=== PATIENT | female | born 1990 | race Caucasian/White ===

== ENCOUNTER 2022-10-03 11:31 | Outpatient (OUT) | payer BC, SELFPAY ==
[2022-09-13 08:54] LABS: Hemoglobin 12.3 g/dL (12.0-16.0)
--- NOTE | 2022-09-13 10:00 | RT_ITS ---
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 Findings were considered accurate and reproducible. Both pre- and post-bronchodilator values utilized for spirometry. No prior studies available for comparison. Spirometry (based on pre-bronchodilator values): -FEV1/FVC: Normal @ 89% -FEV1: Normal @ 89% -FVC: Normal @ 85% -There is no significant bronchodilator response. Lung volumes by plethysmography (based on pre-bronchodilator values): -RV: Normal @ 93% -TLC: Normal @ 89% Diffusion capacity: -DLCO: Normal @ 123% when corrected for Hb 12.3g/dL Flow-volume loop: -Normal variant 'knee shape' Impressions: -Normal PFT. If asthma remains in the differential, may consider methacholine challenge testing. Clinical correlation required. Electronically Signed On 09-13-2022 18:02:13 EDT by Aditya Hill
[2022-09-13 10:10] VITALS: PULSE 104; O2SAT 96
[2022-09-13] MEDS: ALBUTEROL SULFATE 2.5 MG/3 ML VIAL NEB IH (10:10)
== END 2022-10-03 11:32 | disposition home or self-care (01) ==
LOC: CARD 11:31
PROVIDERS: PCP Family Medicine; Visit Provider Nurse Practitioner
DX: R05.9 Cough, unspecified (principal); R06.02 Shortness of breath; J45.909 Unspecified asthma, uncomplicated
CPT/HCPCS: 36415; 85018; 94060; 94726; 94729

== ENCOUNTER 2024-05-05 20:19 | Outpatient (REF) | payer OTHER, SELFPAY | END 2024-05-05 20:20 | disposition home or self-care (01) | LOC: LAB 20:19 | PROVIDERS: PCP Family Medicine; Visit Provider Physician Assistant | DX: Z01.419 Encounter for gynecological examination (general) (routine) without abnormal findings (principal) | CPT/HCPCS: 87624; 88175 ==

== ENCOUNTER 2024-05-09 08:39 | Outpatient (OUT) | payer OTHER, SELFPAY ==
--- OUTSIDE RECORDS SUMMARY | 2024-05-09 08:41 | XMS_ITS | CCD ---
Author Organization [facility] Care Team Providers Care Sheep Shearer Name Role Phone MD Arnie Garcia Attending Provider [phone] MD Jemima De La Fuente Primary Care Provider Arnie Garcia Unavailable JASMYN ., DR JEMIMA Foote Primary Care Unavailable DE LA FUENTE ., DR JEMIMA Foote Consulting Unavailable DE LA FUENTE ., DR JEMIMA Foote Attending Unavailable DE LA FUENTE ., DR JEMIMA Foote Admitting Unavailable [place], DR HARLEEN Fields Consulting Unavailable DE LA FUENTE ., DR JEMIMA Foote Primary Care Unavailable DE LA FUENTE ., DR JEMIMA Foote Consulting Unavailable DE LA FUENTE ., DR JEMIMA Foote Attending Unavailable JASMYN ., DR JEMIMA Foote Admitting Unavailable MD Jemima De La Fuente Primary Care Provider [phone] MD Arnie Garcia Attending Provider Dario Freeman. Primary Care Physician Christina Carmichael Unavailable ELISA WINTER Attending Unavailable ELISA WINTER Referring Unavailable ELISA WINTER Referring Unavailable MD Dario Freeman Attending Unavailable MD Dario Freeman Attending Unavailable MD Dario Freeman. Attending Unavailable MD Dario Freeman Attending Unavailable BROOKS ABREU Attending UnavailReyes Valdes Attending Unavailab Reyes Morgan Admitting Unavailab Jemima eLon Primary Care Unavailable MYRNA JAIMES Attending Unavailable KENNETH MELÉNDEZ Attending Unavailable Dario Freeman MD Primary Care Provider Allergies Allergy Classification Reported Allergen(s) Allergy Type Date of Onset Reaction(s) Facility (3 sources) Acetaminophen; Translations: [acetaminophen] Drug Allergy 2 [facility] (3 sources) HYDROcodone; Translations: [hydrocodone] Drug Allergy 2 Vomiting [facility] (9 sources) Acetaminophen / HYDROcodone; Translations: [Vicodin] Drug Allergy 7 Vomiting (disorder) [facility] (1 source) No Known Medication Allergies; Translations: [No Known Medication Allergies] Propensity to adverse reactions (disorder) [facility] Rep[facility] (3 sources) Acetaminophen / HYDROcodone Drug Allergy 4 GI intolerance [facility] (3 sources) Latex Allergy to substance 4 Rash [facility] (3 sources) Wound Dressing Adhesive Drug Allergy 4 Rash [facility] Medications Current Medications Medication Drug Class(es) Dates Sig (Normalized) Sig (Original) acetaminophen 250 mg / aspirin 250 mg / caffeine 65 mg oral tablet (2 sources) Platelet Aggregation Inhibitor, Nonsteroidal Anti-inflammatory Drug, Central Nervous System Stimulant, Methylxanthine Start: 12-08-2021 take 1 tablet by mouth every six hours Aspirin-Acetamin ophen-Caffeine (Excedrin Migraine) 250-250-65 mg Tablet Active 1 TAB PO Q6H December 08, 2021 12:00am acetaminophen 300 mg / butalbital 50 mg / caffeine 40 mg oral capsule (4 sources) Barbiturate, Central Nervous System Stimulant, Methylxanthine Start: 07-04-2022 take 1 capsule by mouth every four hours Fioricet oral capsule 1 cap(s), Oral, q4hr Headache, 30 cap(s), Refill(s) 0, [facility], 152, cm, 07/03/22 15:49:00 EDT, Height/Length Dosing, 108.5, kg, 07/03/22 15:49:00 EDT, Weight Dosing Start Date: 07/04/22 Status: Ordered End: 05-05-2024 mevjuohxrp-nkgllpyortawm-tpp feine (Esgic) 50-325-40 MG capsule every 4 (four) hours 05/05/2024 Discontinued [id number] 200 actuat albuterol 0.09 mg/actuat metered dose inhaler (11 sources) beta2-Adrenergic Agonist Start: 12-08-2021 take 1 puff(s) by inhalation every four hours Albuterol Sulfate Active 2 PUFF INHALATION Q4H December 08, 2021 12:00am albuterol HFA 90 mcg/act inhaler every 4 (four) hours Active take 2 puff(s) by in halation every four hours as needed Albuterol Sulfate HFA 108 (90 Base) MCG/ACT INHALE 2 PUFFS EVERY 4 HOURS NEEDED Inhalation for 17 Days Active take 2 puff(s) by in halation every four hours as needed Albuterol Sulfate HFA 108 (90 Base) MCG/ACT INHALE 2 PUFFS EVERY 4 HOURS NEEDED Inhalation for 17 Days Active Albuterol (Eqv-ProAir HFA) 90 mcg/inh inhalation aerosol (1 source) Start: 07-02-2022 take 2 puff(s) by inhalation every four hours as needed Albuterol (Eqv-ProAir HFA) 90 mcg/inh inhalation aerosol 2 puff(s), Inhalation, q4hr, Refill(s) 0, as needed Start Date: 07/02/22 Status: Ordered amitriptyline hydrochloride 10 mg oral tablet (8 sources) Tricyclic Antidepressant Start: 12-08-2021 take 10 mg by mouth once daily at bedtime Amitriptyline Active 10 MG PO Daily at bedtime December 08, 2021 12:00am azithromycin 250 mg oral tablet (1 source) Macrolide Antimicrobial Start: 12-27-2022 Azithromycin 250 MG 2 tablet on the first day, then 1 tablet daily for 4 days Orally Once a day for 5 day(s) Dec, Active cephalexin 500 mg oral capsule (2 sources) Cephalosporin Antibacterial Start: 06-15-2022 take 500 mg by mouth three times daily Cephalexin Active 500 MG PO Three times daily June 15, 2022 12:00am Start: 12-08-2021 take 500 mg by mouth three times daily Cephalexin Active 500 MG PO Three times daily December 08, 2021 12:00am dextromethorphan hydrobromide 1.5 mg/ml / pyrilamine maleate 1.5 mg/ml oral solution (1 source) Uncompetitive W-anbpcb-A-aspartate Receptor Antagonist, Sigma-1 Agonist Start: 12-27-2022 take 10 mL by mouth every eight hours [place] DM 7.5-7.5 MG/5ML 10 mL Orally every 8 hours for 5 days Dec, Active 120 actuat fluticasone propionate 0.22 mg/actuat metered dose inhaler (1 source) Corticosteroid Start: 09-11-2022 take 1 puff(s) by inhalation twice daily Flovent HFA 220 Aerosol = 1 puff(s), Inhalation, BID, # 12 gram, Refills(s) 0, Pharmacy: [facility], 152.4, cm, 09/11/22 13:38:00 EDT, Height/Length Dosing, 116.4, kg, 09/11/22 13:38:00 EDT, Weight Dosing Start Date: 09/11/22 Status: Ordered magnesium oxide 400 mg oral tablet (2 sources) Start: 05-05-2024 End: 06-04-2024 take 1 tablet by mouth once daily magnesium oxide (Mag-Ox) 400 MG tablet Indications: Other migraine without status migrainosus, not intractable (CMS/HCC) Take 1 tablet (400 mg) by mouth Daily 30 tablet 05/05/2024 06/04/2024 Active melatonin 10 mg oral tablet (1 source) Start: 07-03-2022 melatonin 10 mg oral tablet, chewable See Instructions, Refills(s) 0 Start Date: 07/03/22 Status: Ordered methylPREDNISolone 4 mg oral tablet (1 source) Corticosteroid Start: 12-27-2022 methylPREDNISolone 4 MG as directed Orally for daily dose take half with breakfast, half with dinner for 6 days Dec, Active montelukast 10 mg oral tablet (12 sources) Leukotriene Receptor Antagonist Start: 2023 montelukast (Singulair) 10 MG tablet Take 10 mg by mouth 2023 Active Start: 12-08-2021 take 1 tablet by jeniffer th once daily montelukast 10 mg Tab 10 mg = 1 tab(s), Oral, Daily, Refills(s) 0 Start Date: 07/02/22 Status: Ordered omeprazole 10 mg delayed release oral capsule (8 sources) Proton Pump Inhibitor Start: 12-08-2021 take 10 mg by mouth once daily Omeprazole Active 10 MG PO Daily December 08, 2021 12:00am oxyCODONE hydrochloride 5 mg oral tablet (2 sources) Opioid Agonist Start: 06-15-2022 take 5-10 mg by mouth every six hours Oxycodone Active 5 - 10 MG PO Q6H 40 8 June 15, 2022 Start: 12-08-2021 take 5-10 mg by mout h every six hours Oxycodone Active 5 - 10 MG PO Q6H 40 8 December 08, 2021 SUMAtriptan 50 mg oral tablet (8 sources) Serotonin-1b and Serotonin-1d Receptor Agonist Start: 12-08-2021 take 50 mg by mouth every four hours Sumatriptan Succinate Active 50 MG PO Every 4 hours December 08, 2021 12:00am take 1 tablet by jeniffer th every two hours as needed for headache, then take 2 tablets by mouth every twenty-four hours as needed for headache, then take 5 tablets by mouth every week as needed for headache SUMAtriptan Succinate 50 MG TAKE ONE TABLET BY MOUTH NEEDED FOR HEADACHE -MAY REPEAT IN 2 HOURS AND NO MORE THAN 2 TABS IN 24 HOURS OR 5 TABS WEEKLY Oral for 9 Days Not-Taking ubrogepant 100 mg oral tablet (1 source) Start: 07-04-2022 take 1 tablet by mouth once Ubrelvy 100 mg oral tablet 100 mg = 1 tab(s), Oral, Once, # 30 tab(s), Refills(s) 0, Pharmacy: [facility], 152, cm, 07/03/22 15:49:00 EDT, Height/Length Dosing, 108.5, kg, 07/03/22 15:49:00 EDT, Weight Dosing Start Date: 07/04/22 Status: Ordered Completed/Discontinued Medications Medication Drug Class(es) Dates Sig (Normalized) Sig (Original) cyclobenzaprine hydrochloride 10 mg oral tablet (9 sources) Muscle Relaxant Start: 12-08-2021 take 1 tablet by mouth at bedtime as needed cyclobenzaprine 10 mg Tab 10 mg = 1 tab(s), Oral, Bedtime, PRN for spasm, Take 1/2 tab to 1 tab at bedtime as needed, # 30 tab(s), Refills(s) 0 Start Date: 07/03/22 Status: Ordered Excedrin Migraine (6 sources) Excedrin Migrain e Not-Taking naproxen 500 mg oral tablet (5 sources) Nonsteroidal Anti-inflammatory Drug Start: 2023 End: 05-05-2024 naproxen (Naprosyn) 500 MG tablet Take 500 mg by mouth 2023 05/05/2024 Discontinued Start: 07-04-2022 take 1 tablet by jeniffer th twice daily as needed for headache naproxen 500 mg Tab 500 mg = 1 tab(s), Oral, BID, PRN Headache, # 60 tab(s), Refills(s) 0, Pharmacy: [facility], 152, cm, 07/03/22 15:49:00 EDT, Height/Length Dosing, 108.5, kg, 07/03/22 15:49:00 EDT, Weight Dosing Start Date: 07/04/22 Status: Ordered take 1 tablet by jeniffer th every twelve hours at mealtime as needed Naproxen 500 MG 1 tablet with food or milk as needed Orally every 12 hrs Active tiZANidine 4 mg oral tablet (3 sources) Central alpha-2 Adrenergic Agonist Start: 07-23-2023 End: 05-05-2024 take 1 tablet by mouth once at bedtime tiZANidine (Zanaflex) 4 MG tablet Indications: Migraine without aura and without status migrainosus, not intractable (CMS/HCC) Take 1 tablet (4 mg) by mouth at bedtime 1/2-1 po q hs 30 tablet 2 07/23/2023 05/05/2024 Discontinued topiramate 25 mg oral tablet (4 sources) Start: 10-08-2022 End: 05-05-2024 take 4 tablets by mouth once daily topiramate (Topamax) 25 MG tablet See Instructions, take 4 ( 100mg) orally daily, Refills(s) 0 10/08/2022 05/05/2024 Discontinued take 1 tablet by jeniffer th every twenty-four hours Topamax 100 MG 1 tablet Orally Once a day Active Problems Active Problems Problem Classification Problem Date Documented Da te Episodic/Chronic Acute bronchitis (1 source) Acute bronchitis, unspecified Episodic Asthma (3 sources) Asthma; Translations: [Exacerbation of asthma] 07-02-2022 Chronic Conditions associated with dizziness or vertigo (1 source) Dizziness and giddiness; Translations: [Dizziness and giddiness] Onset: 08-07-2023 Episodic Headache; including migraine (12 sources) Migraine without aura, not refractory ; Translations: [Migraine] Onset: 07-22-2023 09-05-2022 Chronic Other connective tissue disease (1 source) Other muscle spasm; Translations: [OTHER MUSCLE SPASM] Onset: 05-18-2022 Episodic Other connective tissue disease (1 source) Plantar fasciitis 07-02-2022 Episodic Other injuries and conditions due to external causes (1 source) Injury, unspecified, initial encounter; Translations: [Injury, unspecified, initial encounter] Onset: 08-07-2023 Episodic Other lower respiratory disease (1 source) Cough 09-11-2022 Episodic Other nervous system disorders (4 sources) Carpal tunnel syndrome; Translations: [Carpal tunnel syndrome, right upper limb] 12-08-2021 Chronic Other nervous system disorders (6 sources) Bilateral carpal tunnel syndrome; Translations: [Carpal tunnel syndrome, bilateral upper limbs] Chronic Other nervous system disorders (1 source) Carpal tunnel syndrome, bilateral upper limbs Chronic Other nervous system disorders (7 sources) Carpal tunnel syndrome of left wrist; Translations: [Carpal tunnel syndrome, left upper limb] Onset: 07-22-2023 07-22-2023 Chronic Other nervous system disorders (2 sources) Carpal tunnel syndrome, left upper limb Chronic Other nervous system disorders (3 sources) Carpal tunnel syndrome of right wrist; Translations: [Carpal tunnel syndrome, right upper limb] Onset: 07-22-2023 07-22-2023 Chronic Other nervous system disorders (3 sources) Disorder of left median nerve; Translations: [Other lesions of median nerve, left upper limb] Onset: 07-22-2023 07-22-2023 Chronic Other nutritional; endocrine; and metabolic disorders (1 source) Body mass index 40+ - severely obese 08-06-2022 Chronic Other nutritional; endocrine; and metabolic disorders (3 sources) Obesity caused by energy imbalance; Translations: [Other obesity due to excess calories] Onset: 07-22-2023 07-22-2023 Chronic Residual codes; unclassified (3 sources) Hypersomnia; Translations: [Hypersomnia, unspecified] Onset: 07-22-2023 07-22-2023 Chronic Spondylosis; intervertebral disc disorders; other back problems (8 sources) Cervicalgia; Translations: [Cervical disc disorder with radiculopathy, unspecified cervical region] Onset: 07-25-2022 Episodic Viral infection (1 source) Coronavirus infection 07-02-2022 Episodic Comment on above: 12/13/20 Past or Other Problems Problem Classification Problem Date Documented Date Episodic/Chronic Other connective tissue disease (3 sources) History of clinical finding in subject; Translations: [Personal history of other diseases of the musculoskeletal system and connective tissue] Onset: 07-22-2023 07-22-2023 Episodic Other nervous system disorders (3 sources) Paresthesia; Translations: [Paresthesia of skin] Onset: 07-22-2023 07-22-2023 Episodic Residual codes; unclassified (3 sources) Disturbance in sleep behavior; Translations: [Sleep disorder, unspecified] Onset: 07-22-2023 07-22-2023 Episodic Results Test Name Value Interpretation Reference Range [facility] it Family Medicine Office/Clini c Noteon 01-20-2024 Family Medicine Office/Clinic Note Family Medicine Office/Clinic Note HPI Staff Kenneth is a 33 year old female presently for sick bisit Acute: deep cough and tight chest _Respiratory C/O: Duration: week Body aches: no Chest congestion: yes Chills: no Cough: yes Ear complaints: no Eye itching/watering: no Fever: no Headache: yes from the cough Nasal congestion: no Nasal discharge: no Poor appetite: no Reduced activity: no Sinus pain/pressure: no Sneezing: no Sputum production: no Wheezing: yes Ill contacts: no Remedies tried: inhaler, nighttime cold and flu, daytime cold and flu, robitussin, allergy pill, ibuprofen and tylenol _ _ History of Present Illness Please see staff HPI. Review of Systems PHQ Score Initial Depression Screen Score: 0 SCORE Physical Exam Vitals & Measurements T: 36.9 ???C(Oral) HR: 92(Peripheral) RR: 20 BP: 136/80 SpO2: 99% HT: 60 in HT: 152.4 cm WT: 108.9 kg WT: 239.58 lb BMI: 46.89 General: alert, no acute distress ENMT: oral mucosa moist, Cardiovascular: regular rate and rhythm, normal peripheral perfusion Respiratory: Lungs expiratory wheezes, respirations non labored Extremities: no deformity, no trauma Neurological: oriented x 4, LOC appropriate for age, CN II-XII intact, motor strength equal & normal bilaterally, speech normal Abdomen: Soft, Nontender, Non-distended, + BS Assessment/Plan 1. Acute URI (J06.9: Acute upper respiratory infection, unspecified) COVID and flu are within normal limits. With the patient wheezing we will do a Medrol Dosepak and azithromycin. Ordered: azithromycin, = 1 packet(s), Oral, As Directed, as directed on package labeling, X 5 day(s), # 6 tab(s), Refills(s) 0, Pharmacy: [facility], 152.4, cm, 01/20/24 15:06:00 EST, Height/Length Dosing, 108.9, kg, 01/20/24 15:06:00 EST, Weight Dosing methylPREDNISolone, = 1 packet(s), Oral, As Directed, as directed on package labeling, X 6 day(s), # 21 tab(s), Refills(s) 0, Pharmacy: [facility], 152.4, cm, 01/20/24 15:06:00 EST, Height/Length Dosing, 108.9, kg, 01/20/24 15:06:00 EST, Weight Dosing 2. BMI 45.0-49.9, adult (Z68.42: Body mass index [BMI] 45.0-49.9, adult) BMI education given. Ordered: azithromycin, = 1 packet(s), Oral, As Directed, as directed on package labeling, X 5 day(s), # 6 tab(s), Refills(s) 0, Pharmacy: [facility], 152.4, cm, 01/20/24 15:06:00 EST, Height/Length Dosing, 108.9, kg, 01/20/24 15:06:00 EST, Weight Dosing methylPREDNISolone, = 1 packet(s), Oral, As Directed, as directed on package labeling, X 6 day(s), # 21 tab(s), Refills(s) 0, Pharmacy: [facility], 152.4, cm, 01/20/24 15:06:00 EST, Height/Length Dosing, 108.9, kg, 01/20/24 15:06:00 EST, Weight Dosing 3. Morbid obesity with BMI of 45.0-49.9, adult (E66.01: Morbid (severe) obesity due to excess calories) Diet and exercise advised Ordered: azithromycin, = 1 packet(s), Oral, As Directed, as directed on package labeling, X 5 day(s), # 6 tab(s), Refills(s) 0, Pharmacy: [facility], 152.4, cm, 01/20/24 15:06:00 EST, Height/Length Dosing, 108.9, kg, 01/20/24 15:06:00 EST, Weight Dosing methylPREDNISolone, = 1 packet(s), Oral, As Directed, as directed on package labeling, X 6 day(s), # 21 tab(s), Refills(s) 0, Pharmacy: [facility], 152.4, cm, 01/20/24 15:06:00 EST, Height/Length Dosing, 108.9, kg, 01/20/24 15:06:00 EST, Weight Dosing 4. Nonsmoker (Z78.9: Other specified health status) Please continue not to smoke. Ordered: azithromycin, = 1 packet(s), Oral, As Directed, as directed on package labeling, X 5 day(s), # 6 tab(s), Refills(s) 0, Pharmacy: [facility], 152.4, cm, 01/20/24 15:06:00 EST, Height/Length Dosing, 108.9, kg, 01/20/24 15:06:00 EST, Weight Dosing methylPREDNISolone, = 1 packet(s), Oral, As Directed, as directed on package labeling, X 6 day(s), # 21 tab(s), Refills(s) 0, Pharmacy: [facility], 152.4, cm, 01/20/24 15:06:00 EST, Height/Length Dosing, 108.9, kg, 01/20/24 15:06:00 EST, Weight Dosing Orders: Influenza Type A&B POC 43023 Follow-up No qualifying data available Patient Education BMI for Adults Problem List/Past Medical History Ongoing Acute URI Body mass index (BMI) of 45.0-49.9 in adult Carpal tunnel syndrome, bilateral Coronavirus infection Dizziness Impacted ear wax Migraine without aura and without status migrainosus, not intractable Mild intermittent asthma without complication NAGA (obstructive sleep apnea) Plantar fasciitis Historical No qualifying data Procedure/Surgical History Carpal tunnel, None. Medications Albuterol (Eqv-ProAir HFA) 90 mcg/inh inhalation aerosol, 2 puff(s), Inhalation, q4hr azithromycin 250 mg Tab, 1 packet(s), Oral, As Directed ibuprofen 800 mg Tab, 800 mg= 1 tab(s), Oral, BID Medrol Dosepack 4 mg Tab, 1 packet(s), Oral, As Directed montelukast 10 mg Tab, 10 mg= 1 tab(s), Oral, Daily, 1 refills Allergies Vicodin (Vomiting) Social History Alcohol Curren (more content not included)... Normal [facility] Comment on above: Result Comment: Elec tronically Signed By: Pete LUONG, Dario Forbes\.br\Date and Time Signed: 01/20/24 15:39 EST Family Medicine Office/Clini c Noteon 12-27-2023 Family Medicine Office/Clinic Note Family Medicine Office/Clinic Note Chief Complaint Hip Pain HPI Staff Pt presents today for acute visit due to Lt hip pain. Pain characteristics: Pain location: Lt hip Intensity:_11/25 Onset: Saturday Medication used: OTC Tylenol & Ibuprofen History of Present Illness 33 [address] patient of Dr[address] Freeman presents today for an acute visit for evaluation of left hip pain. She reports she had this same pain in the past with Dr. De La Fuente but does not remember what she was given at that time but it did help with the pain. She reports she did not have any injury. She reports she took some ibuprofen and acetaminophen yesterday and she has not taken anything today. She states she has been using ice and heat as well with no relief. She states it feels like someone is stabbing her in the hip in the back. Review of Systems PHQ Score Initial Depression Screen Score: 0 SCORE Constitutional: no fever, no chills, no sweats, no weakness Skin: no Jaundice, no rash, no lesions, nopetechiae Respiratory: no shortness of breath, no cough, no orthopnea, no wheezing Cardiovascular: no chest pain, no palpitations, no edema Musculoskeletal: mild back pain, no trauma Neurologic: no headache, no dizziness, no numbness, no weakness Psychiatric: no sleeping problems, no irritability, no mood swings/depression. Additional ROS info: Except as noted in the above Review of Systems and in the History of Present Illness all other systems have been reviewed and are negative or noncontributory. Physical Exam Vitals & Measurements T: 36.8 ?C(Oral) HR: 98(Peripheral) RR: 16 BP: 134/82 SpO2: 98% HT: 60 in HT: 152.4 cm WT: 105.8 kg WT: 232.76 lb BMI: 45.55 General: alert, no acute distress Cardiovascular: regular rate and rhythm, normal peripheral perfusion Respiratory: Lungs CTA, respirations non labored Extremities: no deformity, no trauma; point tenderness to the posterior left hip; positive straight leg raise on the left Neurological: oriented x 4, LOC appropriate for age speech normal Assessment/Plan 1. Left hip pain (M25.552: Pain in left hip) Encouraged to do floor exercises to stretch her back Encouraged to take the ibuprofen BID and the tizanidine 4 mg prior to bedtime f/u in 3-5 days with pcp. Ordered: ibuprofen, 800 mg = 1 tab(s), Oral, BID, # 28 tab(s), Refills(s) 0, Pharmacy: [facility], 152.4, cm, 12/26/23 16:06:00 EDT, Height/Length Dosing, 105.8, kg, 12/26/23 16:06:00 EDT, Weight Dosing ketorolac, 60 mg = 2 mL, Injection, IntraMuscular, Once, Stop date 12/26/23 16:08:00 EDT, Routine, Start date 12/26/23 16:08:00 EDT, 12/26/23 16:08:00 EDT tizanidine, 4 mg = 1 cap(s), Oral, Daily, Take 1 hour before bedtime, # 30 cap(s), Refills(s) 0, Pharmacy: [facility], 152.4, cm, 12/26/23 16:06:00 EDT, Height/Length Dosing, 105.8, kg, 12/26/23 16:06:00 EDT, Weight Dosing 2. Bursitis, hip (M70.70: Other bursitis of hip, unspecified hip) Ordered: ibuprofen, 800 mg = 1 tab(s), Oral, BID, # 28 tab(s), Refills(s) 0, Pharmacy: [facility], 152.4, cm, 12/26/23 16:06:00 EDT, Height/Length Dosing, 105.8, kg, 12/26/23 16:06:00 EDT, Weight Dosing tizanidine, 4 mg = 1 cap(s), Oral, Daily, Take 1 hour before bedtime, # 30 cap(s), Refills(s) 0, Pharmacy: [facility], 152.4, cm, 12/26/23 16:06:00 EDT, Height/Length Dosing, 105.8, kg, 12/26/23 16:06:00 EDT, Weight Dosing 3. Body mass index (BMI) of 45.0-49.9 in adult, (Z68.42: Body mass index [BMI] 45.0-49.9, adult)Body mass index [BMI] 45.0-49.9, adult The standard range for ages 18 and older is >=18.5 and < 25 kg/m2. Your BMI today was above this range, this falls in the overweight to obese category and there are medical benefits to weight loss. We can offer counselling, referral, and/or medical support in addressing this problem. Your BMI and weight management will be followed at subsequent visits. 4. Class 3 severe obesity due to excess calories with body mass index (BMI) of 45.0 to 49.9 in adult (E66.01: Morbid (severe) obesity due to excess calories) The standard range for ages 18 and older is >=18.5 and < 25 kg/m2. Your BMI today was above this range, this falls in the overweight to obese category and there are medical benefits to weight loss. We can offer counselling, referral, and/or medical support in addressing this problem. Your BMI and weight management will be followed at subsequent visits. 5. Nonsmoker (Z78.9: Other specified health status) Encourage to continue as a non-smoker Follow-up With When Contact Information Dario Freeman Within 3 to 5 days [address] [place] [address] Business (2) Additional Instructions: Bursitis of Left hip Patient Education Hip Bursitis Bursitis, [id number] Problem List/Past Medical History Ongoing Body mass index (BMI) of 45.0-49.9 in adult Carpal tunnel syndrome, bilateral Coronavirus infection Dizziness Impacted ear wax Migraine without aura and without status migrainos (more content not included)... Normal [facility] Comment on above: Result Comment: Elec tronically Signed By: HILARIO ABREU CNP\.mal\Date and Time Signed: 12/27/23 09:11 EDT Provider Letteron 12-26-2023 Provider Letter Provider Letter December 26, 2023 KENNETH LEOS [address] [place] [address] : 1990 To Whom It May Concern, Please excuse above patient from work. Date of Illness: 12/27/2023 May Return to Work On: 12/30/2023 Sincerely, [address] [address] [facility] Ambulatory Visit Summaryon 0 11-05-2023 Ambulatory Visit Summary Ambulatory Visit Summary KENNETH LEOS :1990 Visit Date:11/05/2023 Ambulatory Visit Instructions Your Diagnosis Dizziness Body mass index (BMI) of 45.0-49.9 in adult Impacted ear wax Your Care Team Attending Physician - Dario Freeman MD. Primary Care Physician - Dario Freeman MD. This Is Your Medications List Contact prescribing physician if questions or concerns albuterol (Albuterol (Eqv-ProAir HFA) 90 mcg/inh inhalation aerosol) montelukast (montelukast 10 mg Tab) [Image Removed: STOP]Stop taking these medications APAP/butalbital/caffei ne (Fioricet oral capsule) naproxen (naproxen 500 mg Tab) Procedures Performed Carpal tunnel, None. Discharge Vitals Temperature (Oral) 36.6 ?C Heart Rate (Peripheral) 88 Respiratory Rate 16 Blood Pressure 130/78 Height 152.4 cm Height 60 in Weight 108.0 kg Weight 237.6 lb BMI 46.5 Medications What How Much When Instructions Unchanged albuterol (Albuterol (Eqv-ProAir HFA) 90 mcg/ inh inhalation aerosol) 2 Puffs Inhalation Every 4 hours as needed Contact prescribing physician if questions or concerns Unchanged montelukast (montelukast 10 mg Tab) 1 Tablets By Mouth Every day Contact prescribing physician if questions or concerns What How Much When Comments Stop Taking APAP/ butalbital/ caffeine (Fioricet oral capsule) 1 Capsules By Mouth Every 4 hours as needed for Headache Stop Taking naproxen (naproxen 500 mg Tab) 1 Tablets By Mouth 2 times a day as needed for Headache Allergies Vicodin (Vomiting) Problems Ongoing - Any problem that you are currently receiving treatment for. Body mass index (BMI) of 45.0-49.9 in adult Carpal tunnel syndrome, bilateral Coronavirus infection Dizziness Impacted ear wax Migraine without aura and without status migrainosus, not intractable Mild intermittent asthma without complication NAGA (obstructive sleep apnea) Plantar fasciitis Patient Survey You may receive a survey via text or e-mail asking about your office visit. Please share your experience with us by completing your survey. We appreciate your feedback and thank you for choosing us for your care. Education Materials BMI for Adults What is BMI? Body mass index (BMI) is a number that is calculated from a person's weight and height. BMI can help estimate how much of a person's weight is composed of fat. BMI does not measure body fat directly. Rather, it is an alternative to procedures that directly measure body fat, which can be difficult and expensive. BMI can help identify people who may be at higher risk for certain medical problems. What are BMI measurements used for? BMI is used as a screening tool to identify possible weight problems. It helps determine whether a person is obese, overweight, a healthy weight, or underweight. BMI is useful for: ? Identifying a weight problem that may be related to a medical condition or may increase the risk for medical problems. ? Promoting changes, such as changes in diet and exercise, to help reach a healthy weight. BMI screening can be repeated to see if these changes are working. How is BMI calculated? BMI involves measuring your weight in relation to your height. Both height and weight are measured, and the BMI is calculated from those numbers. This can be done either in [place] ([place] or metric measurements. Note that charts and online BMI calculators are available to help you find your BMI quickly and easily without having to do these calculations yourself. To calculate your BMI in [place] measurements: 1. Measure your weight in pounds (lb). 2. Multiply the number of pounds by 703. ? For example, for a person who weighs 180 lb, multiply that number by 703, which equals 126,540. 3. Measure your height in inches. Then multiply that number by itself to get a measurement called inches squared. ? For example, for a person who is 70 inches tall, the inches squared measurement is 70 inches x 70 inches, which equals 4,900 inches squared. 4. Divide the total from step 2 (number of lb x 703) by the total from step 3 (inches squared): 126,540 ? 4,900 = 25.8. This is your BMI. To calculate your BMI in metric measurements: 1. Measure your weight in kilograms (kg). 2. Measure your height in meters (m). Then multiply that number by itself to get a measurement called meters squared. ? For example, for a person who is 1.75 m tall, the meters squared measurement is 1.75 m x 1.75 m, which is equal to 3.1 meters squared. 3. Divide the number of kilograms (your weight) by the meters squared number. In this example: 70 ? 3.1 = 22.6. This is your BMI. What do the results mean? BMI charts are used to identify whether you are underweight, normal weight, overweight, or obese. The following guidelines will be used: ? Underweight: BMI less than 18.5. ? Normal weight: BMI between 18.5 (more content not included)... Normal [facility] Family Medicine Office/Clini c Noteon 11-05-2023 Family Medicine Office/Clinic Note Family Medicine Office/Clinic Note HPI Staff Kenneth is a 33 year old female presenting for acute visit Acute: bilateral ear pain, dizzy since yesterday, worse this morning and right now room is spinning Had bronchitis last week but it cleared up, used her essential oils, nyquil and dayquil Fevers: none Sinus congestion: no Sneezing: no Ear pain: yes Ear itching, popping, fullness, ringing, muffled hearing: no Ear drainage: no Swollen nodes: no Sore throat: no Ear pain worse with chewing: doesn't know DIfficulty hearing: no History of Present Illness - See staff HPI. Review of Systems PHQ Score Initial Depression Screen Score: 0 SCORE Physical Exam Vitals & Measurements T: 36.6 ?C(Oral) HR: 88(Peripheral) RR: 16 BP: 130/78 SpO2: 99% HT: 60 in HT: 152.4 cm WT: 108.0 kg WT: 237.6 lb BMI: 46.5 General: alert, no acute distress ENMT: oral mucosa moist, TMs are full of wax. No nystagmus. Cardiovascular: regular rate and rhythm, normal peripheral perfusion Respiratory: Lungs CTA, respirations non labored Extremities: no deformity, no trauma Neurological: oriented x 4, LOC appropriate for age, CN II-XII intact, motor strength equal & normal bilaterally, speech normal Abdomen: Soft, Nontender, Non-distended, + BS Assessment/Plan 1. Dizziness (R42: Dizziness and giddiness) Secondary to EAC occlusion versus eustachian tube dysfunction. Improved once wax was removed by flushing. Thought to be 2/2 BS but random BS was 88. 2. Body mass index (BMI) of 45.0-49.9 in adult (Z68.42: Body mass index [BMI] 45.0-49.9, adult) - BMI education added 3. Impacted ear wax (H61.20: Impacted cerumen, unspecified ear) - Debrox to help Total time spent preparing for the encounter, evaluating and assessing the patient, documenting the visit, and ordering appropriate follow-up work was 50 minutes. Follow-up No qualifying data available Patient Education BMI for Adults Problem List/Past Medical History Ongoing Body mass index (BMI) of 45.0-49.9 in adult Carpal tunnel syndrome, bilateral Coronavirus infection Dizziness Impacted ear wax Migraine without aura and without status migrainosus, not intractable Mild intermittent asthma without complication NAGA (obstructive sleep apnea) Plantar fasciitis Historical No qualifying data Procedure/Surgical History Carpal tunnel, None. Medications Albuterol (Eqv-ProAir HFA) 90 mcg/inh inhalation aerosol, 2 puff(s), Inhalation, q4hr montelukast 10 mg Tab, 10 mg= 1 tab(s), Oral, Daily, 1 refills Allergies Vicodin (Vomiting) Social History Alcohol Current, Wine, 1-2 times per year, Alcohol use interferes with work or home: No. Drinks more than intended: No. Others hurt by drinking: No. Ready to change: Yes. Household alcohol concerns: No., 07/03/2022 Substance Abuse - Denies Substance Abuse, 07/03/2022 Tobacco Never (less than 100 in lifetime) Tobacco Use:. Never Smokeless Tobacco Use:. Household tobacco concerns: No., 11/05/2023 Family History Alcoholism: Grandparent. Primary malignant neoplasm of female breast: Grandparent. Primary malignant neoplasm of lung: Grandparent. Immunizations Vaccine Date Status Comments influenza virus vaccine, inactivated - Not Given Patient Refuses diphtheria/pertussis, acel/tetanus adult 12/03/2018 Recorded diphtheria/pertussis, acel/tetanus adult 10/19/2016 Recorded measles/mumps/rubella virus vaccine 07/02/1997 Recorded DTaP, unspecified formulation 07/02/1997 Recorded hepatitis B pediatric vaccine 12/20/1993 Recorded Hib, unspecified formulation 12/20/1993 Recorded measles/mumps/rubella virus vaccine 07/10/1993 Recorded hepatitis B pediatric vaccine 07/10/1993 Recorded hepatitis B pediatric vaccine 1992 Recorded Hib, unspecified formulation 1992 Recorded Hib, unspecified formulation 1992 Recorded Hib, unspecified formulation 1992 Recorded Normal [facility] Comment on above: Result Comment: Elec tronically Signed By: Pete LUONG, Dario Forbes\.br\Date and Time Signed: 11/05/23 15:[address] BRAIN WO CONTon CT BRAIN WO CONT CT BRAIN WO CONT Exam: CT brain without contrast. CLINICAL HISTORY: Trauma, pain TECHNIQUE: CT brain without intravenous contrast. COMPARISON: None FINDINGS: There is no evidence of acute intracranial bleeding, mass effect, or CT evidence of acute ischemia/infarct. The midline structures are intact, no midline shift. The ventricles and basal cisterns are within normal limits. The brainstem and cerebellum are unremarkable. The visualized intraorbital contents are unremarkable. Atrophic appearance of the right maxillary sinus with mucosal thickening. No acute osseous abnormality in the visualized skull base and calvarium. IMPRESSION: No acute intracranial pathology. All CT scans at this facility use dose modulation, iterative reconstruction, and/or weight based dosing when appropriate to reduce radiation dose to as low as reasonably achievable. Finalized by Philipp Carrillo on 08/07/2023 4:29 PM Normal [facility] XR NASAL BONES COMP MIN 3 VW Son 08-07-2023 XR NASAL BONES COMP MIN 3 VWS XR NASAL BONES COMP MIN 3 VWS HISTORY: Pain, dizziness, trauma COMPARISON: None FINDINGS: Multiple views of the nasal bones were obtained. Osseous structures are grossly intact with normal alignment. The right maxillary sinus appears opacified. Remaining sinuses and mastoid air cells are grossly clear. Orbits are unremarkable. IMPRESSION: * No nasal bone abnormality. * Opacification of right maxillary sinus could represent sinusitis although in the setting of trauma, blood products must be considered. Finalized by Vince Odom MD on 08/07/2023 3:56 PM Normal [facility] Consultation Noteon 08-01-19 Consultation Note [id number] [id number] Normal [facility] Ambulatory Visit Summaryon 0 2023 Ambulatory Visit Summary KENNETH LEOS :1990 Visit Date:2023 Ambulatory Visit Instructions Your Diagnosis Migraine without aura and without status migrainosus, not intractable Plantar fasciitis NAGA (obstructive sleep apnea) BMI 45.0-49.9, adult Class 3 obesity Nonsmoker Your Care Team Attending Physician - Dario Freeman MD. Primary Care Physician - Dario Freeman MD. This Is Your Medications List APAP/butalbital/caffei ne (Fioricet oral capsule) albuterol (Albuterol (Eqv-ProAir HFA) 90 mcg/inh inhalation aerosol) cyclobenzaprine (cyclobenzaprine 10 mg Tab) fluticasone (Flovent HFA 220 Aerosol) montelukast (montelukast 10 mg Tab) naproxen (naproxen 500 mg Tab) rizatriptan (rizatriptan 10 mg Dis Tab) topiramate (Topamax 25 mg Tab) ubrogepant (Ubrelvy 100 mg oral tablet) Procedures Performed Carpal tunnel, None. Discharge Vitals Temperature (Temporal Artery) 36.8 ?C Heart Rate (Peripheral) 78 Respiratory Rate 14 Blood Pressure 128/86 Height 152.4 cm Height 60 in Weight 105.9 kg Weight 232.98 lb BMI 45.6 What to do next Scheduled Follow-Up Appointments Saturday 5:15 PM EDT With: Pete LUONG, Dario Forbes Where: [facility] Medicine [place] Normal [facility] Medicine Office/Clini c Noteon 2023 Family Medicine Office/Clinic Note HPI Staff Kenneth is a 32 year old female presenting for follow up migraines Headaches: Time of Onset: last one 3 days ago into saturday and then saturday before that_ Location: not addressed frontal and back of neck_ _ _ Typical headache frequency: for awhile did okay then back to getting them more regularly_ Prior headache work-up: not addressed none _ _ flu: refused questions/concerns: needs refills of montelukast, butalbital, naproxen History of Present Illness Pt presents for follow up. Only two migraines in one month - Needs refills on meds - No issues with plantar faciitis - Doing better. - NO issues at this time. - Never got CPAP. Review of Systems PHQ Score Initial Depression Screen Score: 0 SCORE Physical Exam Vitals & Measurements T: 36.8 ?C(Temporal Artery) HR: 78(Peripheral) RR: 14 BP: 128/86 SpO2: 100% HT: 60 in HT: 152.4 cm WT: 105.9 kg WT: 232.98 lb BMI: 45.6 General: alert, no acute distress ENMT: oral mucosa moist, Cardiovascular: normal peripheral perfusion Respiratory: respirations non labored Extremities: no deformity, no trauma Neurological: oriented x 4, LOC appropriate for age, CN II-XII intact, motor strength equal & normal bilaterally, speech normal Abdomen: Soft, Nontender, Non-distended, + BS Assessment/Plan 1. Migraine without aura and without status migrainosus, not intractable (G43.009: Migraine without aura, not intractable, without status migrainosus) - Follow up with Neuro - Will refill meds - Encouraged by the improvement 2. Plantar fasciitis (M72.2: Plantar fascial fibromatosis) - No issues at this time 3. NAGA (obstructive sleep apnea) (G47.33: Obstructive sleep apnea (adult) (pediatric)) - Please call your insurance to see how we can get your CPAP covered. Follow-up No qualifying data available Problem List/Past Medical History Ongoing Body mass index (BMI) of 45.0-49.9 in adult Carpal tunnel syndrome, bilateral Coronavirus infection Migraine without aura and without status migrainosus, not intractable Mild intermittent asthma without complication NAGA (obstructive sleep apnea) Plantar fasciitis Historical No qualifying data Procedure/Surgical History Carpal tunnel, None. Medications Albuterol (Eqv-ProAir HFA) 90 mcg/inh inhalation aerosol, 2 puff(s), Inhalation, q4hr cyclobenzaprine 10 mg Tab, 10 mg= 1 tab(s), Oral, Bedtime, PRN, Not taking Fioricet oral capsule, 1 cap(s), Oral, q4hr, PRN Flovent HFA 220 Aerosol, 1 puff(s), Inhalation, BID, Not taking montelukast 10 mg Tab, 10 mg= 1 tab(s), Oral, Daily, 1 refills naproxen 500 mg Tab, 500 mg= 1 tab(s), Oral, BID, PRN rizatriptan 10 mg Dis Tab, See Instructions, Not taking Topamax 25 mg Tab, See Instructions Ubrelvy 100 mg oral tablet, 100 mg= 1 tab(s), Oral, Once, Not taking Allergies Vicodin (Vomiting) Social History Alcohol Current, Wine, 1-2 times per year, Alcohol use interferes with work or home: No. Drinks more than intended: No. Others hurt by drinking: No. Ready to change: Yes. Household alcohol concerns: No., 07/03/2022 Substance Abuse - Denies Substance Abuse, 07/03/2022 Tobacco Never (less than 100 in lifetime) Tobacco Use:. Never Smokeless Tobacco Use:. Household tobacco concerns: No., 2023 Family History Alcoholism: Grandparent. Primary malignant neoplasm of female breast: Grandparent. Primary malignant neoplasm of lung: Grandparent. Immunizations Vaccine Date Status Comments influenza virus vaccine, inactivated - Not Given Patient Refuses diphtheria/pertussis, acel/tetanus adult 12/03/2018 Recorded diphtheria/pertussis, acel/tetanus adult 10/19/2016 Recorded measles/mumps/rubella virus vaccine 07/02/1997 Recorded DTaP, unspecified formulation 07/02/1997 Recorded hepatitis B pediatric vaccine 12/20/1993 Recorded Hib, unspecified formulation 12/20/1993 Recorded measles/mumps/rubella virus vaccine 07/10/1993 Recorded hepatitis B pediatric vaccine 07/10/1993 Recorded hepatitis B pediatric vaccine 1992 Recorded Hib, unspecified formulation 1992 Recorded Hib, unspecified formulation 1992 Recorded Hib, unspecified formulation 1992 Recorded Normal [facility] Comment on above: Result Comment: Elec tronically Signed By: Pete LUONG, Dario Cisneros\Date and Time Signed: 04/08/23 17:48 EST HCG ( test) IA.rapi d Ql (U)Ordered By: Ralph Patrick on 06-15-2022 HCG ( test) Ql (U) Negative [facility] XR CSPINE MIN 4 VIEWSon XR CSPINE MIN 4 VIEWS EXAMINATION: XR CSPINE MIN 4 VIEWS HISTORY: Neck pain COMPARISON: No relevant comparison available. FINDINGS: BONES: Normal alignment with no acute fracture. 2 mm anterolisthesis of C4 on C5. Minimal degenerative spondylosis. Mild facet osteoarthropathy DISC SPACES: Normal. No significant disc height narrowing, subluxation, or endplate abnormality. PARASPINOUS: Negative. No paraspinous abnormality is seen. OTHER: Negative. IMPRESSION: Mild degenerative changes 2 mm anterolisthesis of C4 on C5 Electronically authenticated by: HARLEEN GOMEZ Date: 2022-05-16 07:30 Normal [facility] HCG ( test) IA.rapi d Ql (U)Ordered By: Pj Sanders on 12-08-2021 HCG ( test) Ql (U) Negative [facility] COVID-19 Positive/NegativeOr dered By: Arnie Garcia on 12-06-2021 SARS-CoV-2 (COVID-19) N gene OSCAR+probe Ql (Resp) Negative Negative [facility] Comment on above: Testing for SARS-CoV -2 by RT-PCR This test was developed and its performance characteristics determined by [employer] and validated at the [facility]. This test has not been FDA cleared or approved. This test has been authorized by FDA under an Emergency Use Authorization (EUA). This test has been validated in accordance with the FDA's Guidance Document (Policy for Diagnostics Testing in Laboratories Certified to Perform High Complexity Testing under CLIA prior to Emergency Use Authorization for Coronavirus Disease-2019 during the Public Health Emergency) issued on June 18, 2019. This test is only authorized for the duration of time the declaration that circumstances exist justifying the authorization of the emergency use of in vitro diagnostic tests for detection of SARS-CoV-2 virus and/or diagnosis of COVID-19 infection under section 564(b)(1) of the Act, 21 U.S.C. 360bbb-3(b)(1), unless the authorization is terminated or revoked sooner. CBC AUTO DIFFon 10-09-2021 BASO # 0.1 103/ul Normal 0.0-0.[address] [facility] Comment on above: Performed By: #### C BC #### [facility] [address] [place] [address] Dr. Morgan Stratton Basophils/100 WBC (Bld) 0.6 % Normal 0.2-2.[address] [facility] Comment on above: Performed By: #### C BC #### [facility] [address] [place] [address] Dr. Morgan Stratton EO # 0.2 103/ul Normal 0.0-0.[address] [facility] Comment on above: Performed By: #### C BC #### [facility] [address] [place] [address] Dr. Morgan Stratton Eosinophils/100 WBC (Bld) 2.5 % Normal 0.9-7.[address] [facility] Comment on above: Performed By: #### C BC #### [facility] [address] [place] [address] Dr. Morgan Stratton Erythrocyte distribution width (RBC) [Ratio] 13.4 % Normal 11.0-15.[address] [facility] Comment on above: Performed By: #### C BC #### [facility] [address] [place] [address] Dr. Morgan Stratton Hematocrit (Bld) [Volume fraction] 38.5 % Normal 36.0-48.[address] [facility] Comment on above: Performed By: #### C BC #### [facility] [address] [place] [address] Dr. Morgan Stratton Hemoglobin (Bld) [Mass/Vol] 12.8 g/dL Normal 12.0-16.[address] [facility] Comment on above: Performed By: #### C BC #### [facility] [address] [place] [address] Dr. Morgan Stratton IG # 0.05 10e3/ul Critically high 0.00-0.03 [facility] Comment on above: Performed By: #### C BC #### [facility] [address] [place] [address] Dr. Morgan Stratton IG % 0.5 % Normal 0.0-0.[address] [facility] Comment on above: Performed By: #### C BC #### [facility] [address] [place] [address] Dr. Morgan Stratton LYMPH # 2.3 103/ul Normal 1.2-3.[address] [facility] Comment on above: Performed By: #### C BC #### [facility] [address] [place] [address] Dr. Morgan Stratton Lymphocytes/100 WBC (Bld) 24.3 % Normal 20.5-60.[address] [facility] Comment on above: Performed By: #### C BC #### [facility] [address] [place] [address] Dr. Morgan Stratton MANUAL DIFF REQ NO Normal [facility] Comment on above: Performed By: #### C BC #### [facility] [address] [place] [address] Dr. Morgan Stratton MCH (RBC) [Entitic mass] 28.6 pg Normal 26.7-34.[address] [facility] Comment on above: Performed By: #### C BC #### [facility] [address] [place] [address] Dr. Morgan Stratton MCHC (RBC) [Mass/Vol] 33.2 g/dL Normal 29.9-35.[address] [facility] Comment on above: Performed By: #### C BC #### [facility] [address] [place] [address] Dr. Morgan Stratton MCV (RBC) [Entitic vol] 86.1 fL Normal 81.0-99.[address] [facility] Comment on above: Performed By: #### C BC #### [facility] [address] [address] [address] Morgan Stratton MONO # 0.7 103/ul Normal 0.3-0.8 [facility] Comment on above: Performed By: #### C BC #### [facility] [address] [address] [address] Morgan Stratton Monocytes/100 WBC (Bld) 7.4 % Normal 1.7-12.[address] [facility] Comment on above: Performed By: #### C BC #### [facility] [address] [address] [address] Morgan Stratton NEUT # 6.1 103/ul Normal 1.4-6.5 [facility] Comment on above: Performed By: #### C BC #### [facility] [address] [place] [address] Dr. Morgan Stratton Neutrophils/100 WBC (Bld) 64.7 % Normal 43.0-75.[address] [facility] Comment on above: Performed By: #### C BC #### [facility] [address] [place] [address] Dr. Morgan Stratton Platelet mean volume (Bld) [Entitic vol] 10.4 fL Normal 9.5-13.5 [facility] Comment on above: Performed By: #### C BC #### [facility] [address] [place] [address] Dr. Morgan Stratton PLT 336 103/ul Normal 150-450 [facility] Comment on above: Performed By: #### C BC #### [facility] [address] [place] [address] Dr. Morgan Stratton RBC 4.47 106/ul Normal 4.20-5.40 [facility] Comment on above: Performed By: #### C BC #### [facility] [address] [place] [address] Dr. Morgan Stratton WBC 9.4 103/ul Normal 4.0-11.0 [facility] Comment on above: Performed By: #### C BC #### [facility] [address] [place], [place] [address] Dr. Morgan Stratton GLUCOSE BLOODon 10-09-2021 Glucose [Mass/Vol] 104 mg/dL Normal 74-106 [facility] Comment on above: Performed By: #### G JOSEPH, TSH #### [facility] [address] [place], [place] [address] Dr. Morgan Stratton TSHon 10-09-2021 TSH 2.409 uIU/mL Normal 0.358-3.740 [facility] Comment on above: Performed By: #### G JOSEPH, TSH #### [facility] [address] [place], [place] [address] Dr. Morgan Stratton Vital Signs Date Time Vital Sign Value Performing Clinician Facility 05-05-2024 14:20-0500 Body mass index (BMI) [Ratio] 46.25 kg/m2 Myrna ZAPATA Work Phone: [facility] [facility] 05-[facility]24 14:20-0500 Body weight 107.41 kg Myrna Jaimes PA Work Phone: [facility] 05-05-2024 14:20-0500 Diastolic blood pressure 82 mm[Hg] Myrna Jaimes PA Work Phone: [facility] 05-05-2024 14:20-0500 Systolic blood pressure 120 mm[Hg] Myrna Jaimes PA Work Phone: [facility] 12-27-2022 16:05-0400 Body height 152.4 cm Christina Carmichael Other [facility] Other 12-27-2022 16:05-0400 Body mass index (BMI) [Ratio] 46.48 kg/m2 Christina Carmichael Other [facility] Other 12-27-2022 16:05-0400 Body temperature 99.8 [degF] Christina Carmichael Other [facility] Other 12-27-2022 16:05-0400 Body weight 107.96 kg Christina Carmichael Other [facility] Other 12-27-2022 16:05-0400 Diastolic blood pressure 92 mm[Hg] Christina Carmichael Other [facility] Other 12-27-2022 16:05-0400 Respiratory rate 18 /min Christina Amol Other [facility] Other 12-27-2022 16:05-0400 SaO2% (BldA) [Mass fraction] 99 % Christina Amol Other [facility] Other 12-27-2022 16:05-0400 Systolic blood pressure 148 mm[Hg] Christina Amol Other [facility] Other 06-28-2022 14:00-0400 Body height 152.4 cm Arnie Garcia Other [facility] Other 06-28-2022 14:00-0400 Body mass index (BMI) [Ratio] 46.48 kg/m2 Arnie Garcia Other [facility] Other 06-28-2022 14:00-0400 Body weight 107.96 kg Arnie Garcia Other [facility] Other 06-28-2022 14:00-0400 Diastolic blood pressure 62 mm[Hg] Arnie Garcia Other [facility] Other 06-28-2022 14:00-0400 Systolic blood pressure 98 mm[Hg] Arnie Garcia Other [facility] Other 06-15-2022 08:42-0400 Diastolic blood pressure 95 mm[Hg] MD Jemima De La Fuente Work Phone: [facility] 06-15-2022 08:42-0400 Heart rate 89 /min MD Jemima De La Fuente Work Phone: [facility] 06-15-2022 08:42-0400 Respiratory rate 16 /min MD Jemima De La Fuente Work Phone: [facility] 06-15-2022 08:42-0400 SaO2% (BldA) [Mass fraction] 100 % MD Jemima De La Fuente Work Phone: [facility] 06-15-2022 08:42-0400 Systolic blood pressure 137 mm[Hg] MD Jemima De La Fuente Work Phone: [facility] 06-15-2022 08:19-0400 Body temperature 97.6 [degF] MD Jemima De La Fuente Work Phone: [facility] 06-15-2022 07:33-0400 Body height 152.4 cm MD Jemima De La Fuente Work Phone: [facility] 06-15-2022 07:33-0400 Body mass index (BMI) [Ratio] 45.8 kg/m2 MD Jemima D eLa Fuente Work Phone: [facility] 06-15-2022 07:33-0400 Body weight 106.59 kg MD Jemima De La Fuente Work Phone: [facility] 05-31-2022 09:20-0400 Body height 152.4 cm Arnie Garcia Other [facility] Other 05-31-2022 09:20-0400 Body mass index (BMI) [Ratio] 46.48 kg/m2 Arnie Garcia Other [facility] Other 05-31-2022 09:20-0400 Body weight 107.96 kg Arnie Garcia Other [facility] Other 05-31-2022 09:20-0400 Diastolic blood pressure 78 mm[Hg] Arnie Garcia Other [facility] Other 05-31-2022 09:20-0400 Systolic blood pressure 128 mm[Hg] Arnie Garcia Other [facility] Other 12-08-2021 09:25-0400 Diastolic blood pressure 99 mm[Hg] MD Arnie Garcia Work Phone: [facility] 12-08-2021 09:25-0400 Heart rate 89 /min MD Arnie Garcia Work Phone: [facility] 12-08-2021 09:25-0400 Respiratory rate 16 /min MD Arnie Garcia Work Phone: [facility] 12-08-2021 09:25-0400 SaO2% (BldA) [Mass fraction] 99 % MD Arnie Garcia Work Phone: [facility] 12-08-2021 09:25-0400 Systolic blood pressure 149 mm[Hg] MD Arnie Garcia Work Phone: [facility] 12-08-2021 06:36-0400 Body height 152.4 cm MD Arnie Garcia Work Phone: [facility] 12-08-2021 06:36-0400 Body temperature 98 [degF] MD Arnie Garcia Work Phone: [facility] 12-08-2021 06:36-0400 Body weight 109.31 kg MD Arnie Garcia Work Phone: [facility] Encounters Encounter Date Encounter Type Care Provider Facility Start: 05-05-2024 End: 05-05-2024 Bamboo flowsheet Myrna ZAPATA Work Phone: [facility] Start: 05-05-2024 End: 05-05-2024 Bamboo flowsheet Myrna ZAPATA Work Phone: [facility] Start: 05-05-2024 End: 05-05-2024 Patient encounter procedure Myrna ZAPATA Work Phone: [facility] Work Phone: Start: 05-05-2024 End: 05-05-2024 Patient encounter status Myrna Jaimes JODI Work Phone: [facility] Start: 05-05-2024 End: 05-05-2024 Periodic preventive med est patient 18-39 yrs Myrna Jaimes JODI Work Phone: [facility] Comment on above: Well woman exam with routine gynecological exam; Other migraine without status migrainosus, not intractable (CMS/HCC); Well adult exam Start: 05-05-2024 End: 05-05-2024 ambulatory MYRNA JAIMES Not Available Start: 04-27-2024 ambulatory Reyes Son acility:[facility] Start: 01-20-2024 End: 01-20-2024 ambulatory MD Dario [facility] Facility:[facility] [place] Start: 12-26-2023 End: 12-26-2023 ambulatory BROOKS ABREU Facility:[facility] [place] Start: 11-05-2023 End: 11-05-2023 ambulatory MD Dario [facility] Facility:[facility] [place] Start: 08-07-2023 End: 08-08-2023 ambulatory [facility] Start: 07-23-2023 End: 07-23-2023 ambulatory KENNETH MELÉNDEZ Not Available Start: 07-15-2023 End: 07-15-2023 ambulatory MD Dario Freeman Facility:[facility] [place] Start: 2023 End: 2023 ambulatory MD Dario Freeman Facility:[facility] [place] Start: 12-27-2022 End: 12-27-2022 ambulatory Christina Carmichael Other [facility] Other Start: 12-27-2022 Office outpatient vi sit 25 minutes Christina Carmichael [facility] Start: 09-29-2022 End: 09-29-2022 Patient encounter procedure Pallavi Weinstein [facility] Start: 06-28-2022 End: 06-28-2022 ambulatory Arnie Garcia Other [facility] Other Start: 06-28-2022 Postop follow up vis it related to original px Arnie Garcia [facility] Start: 06-15-2022 End: 06-15-2022 Admission to same day surgery center MD Jemima De La Fuente Work Phone: [facility] [place] Start: 06-15-2022 End: 06-15-2022 ambulatory MD Jemima De La Fuente Work Phone: [facility] Work Phone: Start: 05-31-2022 End: 05-31-2022 ambulatory Arnie Garcia Other [facility] Other Start: 05-31-2022 Office outpatient vi sit 25 minutes Arnie Garcia [facility] Start: 05-15-2022 End: 05-16-[address] JEMIMA DE LA FUENTE . Facility:[facility] Start: 12-21-2021 End: 12-21-2021 ambulatory Arnie Garcia Other [place] [facility] Other Start: 12-21-2021 Postop follow up vis it related to original px Arnie Garcia [facility] Start: 12-08-2021 End: 12-08-2021 Admission to same day surgery center MD Arnie Garcia Work Phone: [facility] Start: 12-08-2021 End: 12-08-2021 ambulatory Arnie Garcia Other [place] [facility] Other Start: 12-06-2021 End: 12-06-2021 Patient encounter procedure MD Arnie Garcia Work Phone: [facility] Start: 10-09-2021 End: 10-10-[address] JEMIMA DE LA FUENTE . Facility:[facility] Procedures Date Procedure Procedure Detail Performing Clinician Start: 06-15-2022 Decompression of med ruben nerve MD Jemima De La Fuente Work Phone: Start: 12-08-2021 Decompression of med ruben nerve MD Arnie Garcia Work Phone: Carpal tunnel syndro me (disorder) Pallavi Weinstein None (qualifier value) Pallavi Weinstein Plan of Treatment Date Care Activity Detail Author Start: 05-05-2024 End: 05-05-2025 CBC W Auto Differential panel - Blood CBC auto differential Lab Routine Well adult exam Expected: 05/05/2024 (Approximate), Expires: 05/05/2025 [facility] Comment on above: Expected: 05/05/2024 (Approximate), Expires: 05/05/2025 Start: 05-05-2024 End: 05-05-2025 Cholesterol [Mass/volume] in Serum or Plasma Cholesterol, total Lab Routine Well adult exam Expected: 05/05/2024 (Approximate), Expires: 05/05/2025 [facility] Comment on above: Expected: 05/05/2024 (Approximate), Expires: 05/05/2025 Start: 05-05-2024 End: 05-05-2025 Comprehensive metabolic 2000 panel - Serum or Plasma Comprehensive metabolic panel Lab Routine Well adult exam Expected: 05/05/2024 (Approximate), Expires: 05/05/2025 [facility] Comment on above: Expected: 05/05/2024 (Approximate), Expires: 05/05/2025 Start: 05-05-2024 End: 05-05-2025 Hemoglobin A1c/Hemoglobin.total in Blood Hemoglobin A1c Lab Routine Well adult exam Expected: 05/05/2024 (Approximate), Expires: 05/05/2025 [facility] Comment on above: Expected: 05/05/2024 (Approximate), Expires: 05/05/2025 Start: 05-05-2024 End: 05-05-2024 Patient encounter procedure 05/05/2024 2:00 PM EST Office Visit [facility] [address] [place] [address] Myrna Jaimes PA [address] [place] [address] Arrived [facility] Comment on above: Arrived Start: 05-05-2024 End: 05-05-2025 Thyrotropin [Units/volume] in Serum or Plasma TSH Lab Routine Well adult exam Expected: 05/05/2024 (Approximate), Expires: 05/05/2025 [facility] Comment on above: Expected: 05/05/2024 (Approximate), Expires: 05/05/2025 Start: 06-15-2022 [facility] Start: 06-15-2022 [facility] Start: 12-08-2021 End: 12-08-[address] [facility] Work Phone: Cytology Cervical or vaginal smear or scraping study Pap Smear Pathology and Cytology Routine Well woman exam with routine gynecological exam Ordered: 05/05/2024 [facility] Work Phone: Comment on above: Ordered: 05/05/2024 Human papilloma viru s DNA [Presence] in Unspecified specimen by Probe with amplification HPV DNA probe, amplified Microbiology Routine Well woman exam with routine gynecological exam Ordered: 05/05/2024 [facility] Comment on above: Ordered: 05/05/2024 Patient referral [facility] Work Phone: Immunizations Immunization Date Immunization Notes Care Provider Fa [facility] 12-03-2018 tetanus toxoid, redu cheryl diphtheria toxoid, and acellular pertussis vaccine, adsorbed Basem Weinstein [facility] 10-19-2016 tetanus toxoid, redu cheryl diphtheria toxoid, and acellular pertussis vaccine, adsorbed Basem Weinstein [facility] 07-02-1997 DTaP, unspecified formulation Basem Weinstein [facility] 07-02-1997 measles, mumps and rubella virus vaccine Basem Weinstein [facility] 12-20-1993 hepatitis B vaccine, pediatric or pediatric/adolescent dosage Basem Weinstein [facility] 12-20-1993 Hib, unspecified formulation Basem Weinstein [facility] 07-10-1993 hepatitis B vaccine, pediatric or pediatric/adolescent dosage Basem Weinstein [facility] 07-10-1993 measles, mumps and rubella virus vaccine Basem Weinstein [facility] 1992 hepatitis B vaccine, pediatric or pediatric/adolescent dosage Basem Weinstein [facility] 1992 Hib, unspecified formulation Basem Weinstein [facility] 1992 Hib, unspecified formulation Basem Weinstein [facility] 1992 Hib, unspecified formulation Basem Weinstein [facility] Payers Date Payer Category Payer Self-pay [id number] 2023 Private Health Insurance [facility] MEDICA[facility] [id number] 2023 Unknown [id number] 2023 Unknown [id number] 1992 Unknown [id number]. 593 1992 Unknown [id number] [id number]. 593 1992 Unknown [id number]. 727 1992 Unknown [id number] [id number]. 727 1992 Unknown [id number] [id number]. 727 1992 Unknown [id number] [id number]. 727 1992 Unknown [id number]. 727 1992 Unknown [id number] [id number]. 1259 1992 Unknown [id number]. 1259 1959 Unknown [id number] Unknown [id number] 531 Social History Date Type Detail Facility Tobacco smoking stat us [facility] Unknown if ever smoked [facility] Work Phone: Start: 1990 Sex Assigned At Female [facility] Start: 12-08-2021 End: 07-22-2023 Tobacco smoking status NHIS Never smoked tobacco (finding) [facility] Start: 07-23-2023 [facility] Start: 07-22-2023 Tobacco use and exposure Smokeless tobacco non-user [facility] Start: 08-08-2023 End: 05-05-2024 Alcoholic beverage intake Current drinker of alcohol (finding) [facility] Start: 07-23-2023 History of Social function [facility] Start: 07-22-2023 Alcohol Comment caffeine 1-2 cups per day [facility] Start: 07-22-2023 Gender identity Identifies as female gender (finding) [facility] Start: 07-22-2023 Sexual orientation Heterosexual (finding) [facility] Healthcare Goals Date Patient Goal Desired Activity /State Clinical Notes 12-21-2021 to 05-05-2024 JODI Aviles - 05/05/2024 2:00 PM EST Note Date & Type Note Facility 05-05-2024 History of Present illness Narrative Reason for Appointment: Patient ID: Kenneth Leos is a 34 y.o. female who presents for Well Women Visit Patient presents today for Annual Exam. MEDICATIONS Current Outpatient Medications Medication Instructions albuterol HFA 90 mcg/act inhaler Every 4 hours montelukast (SINGULAIR) 10 mg ALLERGIES Allergies Allergen Reactions Hydrocodone-Acetaminophen GI intolerance Latex Rash Wound Dressing Adhesive Rash PROBLEMS Active Ambulatory Problems Diagnosis Date Noted Carpal tunnel syndrome of left wrist 07/22/2023 Carpal tunnel syndrome of right wrist 07/22/2023 Left median nerve neuropathy 07/22/2023 Paresthesia 07/22/2023 Migraine (CMS/HCC) 07/22/2023 History of neck pain 07/22/2023 Migraine without aura and without status migrainosus, not intractable (CMS/HCC) 07/22/2023 Tension type headache 07/22/2023 Sleep disturbance 07/22/2023 Obesity due to excess calories 07/22/2023 Hypersomnia 07/22/2023 Resolved Ambulatory Problems Diagnosis Date Noted No Resolved Ambulatory Problems Past Medical History: Diagnosis Date Anxiety Asthma (CMS/HCC) Back pain GERD (gastroesophageal reflux disease) Migraines (CMS/HCC) Seasonal allergies HISTORY PAST MEDICAL HISTORY SOCIAL HISTORY Past Medical History: Diagnosis Date Anxiety Asthma (CMS/HCC) Back pain GERD (gastroesophageal reflux disease) Migraines (CMS/HCC) Seasonal allergies Social History Tobacco Use Smoking status: Never Smokeless tobacco: Never Substance Use Topics Alcohol use: Yes Alcohol/week: 1.0 - 2.0 standard drink of alcohol Types: 1 - 2 Standard drinks or equivalent per week Comment: caffeine 1-2 cups per day Drug use: Never FAMILY HISTORY Family History Problem Relation Name Age of Onset Asthma Mother Hypertension Mother Seizures Father Alzheimer's disease Other Cancer Other Coronary artery disease Other Hyperlipidemia Other Kidney disease Other SURGICAL HISTORY Past Surgical History: Procedure Laterality Date BREAST BIOPSY Left 2016 CARPAL TUNNEL RELEASE TONSILLECTOMY WISDOM TOOTH EXTRACTION REVIEW OF SYSTEMS Review of Systems: Review of Systems Constitutional: Negative. HENT: Negative. Eyes: Negative. Respiratory: Negative. Cardiovascular: Negative. Gastrointestinal: Negative. Genitourinary: Negative. Musculoskeletal: Negative. Skin: Negative. Neurological: Negative. All other systems reviewed and are negative. Hematological: Negative. Endocrine: Negative. Allergic/Immunologic: Negative. OBJECTIVE Objective: Physical Exam Constitutional: Appearance: Normal appearance. She is well-developed. Genitourinary: Vulva normal. Right Adnexa: not tender and no mass present. Left Adnexa: not tender and no mass present. No cervical discharge. Breasts: Breasts are soft. Right: Normal. Left: Normal. HENT: Head: Normocephalic. Nose: Nose normal. Mouth/Throat: Mouth: Mucous membranes are moist. Cardiovascular: Rate and Rhythm: Normal rate and regular rhythm. Pulmonary: Effort: Pulmonary effort is normal. Breath sounds: Normal breath sounds. Abdominal: General: Bowel sounds are normal. There is no distension. Palpations: Abdomen is soft. Tenderness: There is no abdominal tenderness. There is no guarding or rebound. Musculoskeletal: General: No swelling. Normal range of motion. Cervical back: Normal range of motion. Right lower leg: No edema. Left lower leg: No edema. Neurological: General: No focal deficit present. Mental Status: She is alert and oriented to person, place, and time. Skin: General: Skin is warm and dry. Psychiatric: Mood and Affect: Mood normal. Behavior: Behavior normal. Vitals and nursing note reviewed. Exam conducted with a cyber engineer present. Vitals: Estimated body mass index is 46.25 kg/m as calculated from the following: Height as of 07/23/23: 5'. Weight as of this encounter: 236 lb 12.8 oz. BP: 120/82 Patient's last menstrual period was 04/22/2024. ASSESSMENT & PLAN ICD-10-CM 1. Well woman exam with routine gynecological exam Z01.419 Pap Smear HPV DNA probe, amplified 2. Other migraine without status migrainosus, not intractable ([facility]) G43.809 Annual Exam: Patient presents today for an annual exam. Patient states she is doing well and has no complaints. Pap was obtained without difficulty. Patient encouraged a multivitamin to take. Patient does have migraines encouraged Magnesium at night and gave samples of Ubrevly. Patient is asking about weight loss. Patient is doing calorie intake and diet control. Discussed patient to come back into office to discuss Adipex. Orders Placed This Encounter Procedures HPV DNA probe, amplified Follow Up: Patient is to return in office to start Adipex. Documented by Toshia Guerrero LPN on behalf of: JODI Aviles documented in this encounter [facility] 01-20-2024 Note Patient Education Nutrition BMI for Adults Body mass index (BMI) is a number found using a person's weight and height. BMI can help tell how much of a person's weight is made up of fat. BMI does not measure body fat directly. It is used instead of tests that directly measure body fat, which can be difficult and expensive. What are BMI measurements used for? BMI is useful to: ??? Find out if your weight puts you at higher risk for medical problems. ??? Help recommend changes, such as in diet and exercise. This can help you reach a healthy weight. BMI screening can be done again to see if these changes are working. How is BMI calculated? Your height and weight are measured. The BMI is found from those numbers. This can be done with U.S. or metric measurements. Note that charts and online BMI calculators are available to help you find your BMI quickly and easily without doing these calculations. To calculate your BMI in U.S. measurements: 1. Measure your weight in pounds (lb). 2. Multiply the number of pounds by 703. ??? So, for an adult who weighs 150 lb, multiply that number by 703: 150 x 703, which equals 105,450. 3. Measure your height in inches. Then multiply that number by itself to get a measurement called inches squared. ??? So, for an adult who is 70 inches tall, the inches squared measurement is 70 inches x 70 inches, which equals 4,900 inches squared. 4. Divide the total from step 2 (number of lb x 703) by the total from step 3 (inches squared): 105,450 ? 4,900 = 21.5. This is your BMI. To calculate your BMI in metric measurements: 1. Measure your weight in kilograms (kg). ??? For this example, the weight is 70 kg. 2. Measure your height in meters (m). Then multiply that number by itself to get a measurement called meters squared. ??? So, for an adult who is 1.75 m tall, the meters squared measurement is 1.75 m x 1.75 m, which equals 3.1 meters squared. 3. Divide the number of kilograms (your weight) by the meters squared number. In this example: 70 ? 3.1 = 22.6. This is your BMI. What do the results mean? BMI charts are used to see if you are underweight, normal weight, overweight, or obese. The following guidelines will be used: ??? Underweight: BMI less than 18.5. ??? Normal weight: BMI between 18.5 and 24.9. ??? Overweight: BMI between 25 and 29.9. ??? Obese: BMI of 30 or above. BMI is a tool and cannot diagnose a condition. Talk with your health care provider about what your BMI means for you. Keep these notes in mind: ??? Weight includes fat and muscle. Someone with a muscular build, such as an athlete, may have a BMI that is higher than 24.9. In cases like these, BMI is not a correct measure of body fat. ??? If you have a BMI of 25 or higher, your provider may need to do more testing to find out if excess body fat is the cause. ??? BMI is measured the same way for males and females. Females usually have more body fat than males of the same height and weight. Where to find more information For more information about BMI, including tools to quickly find your BMI, go to: ??? Centers for Disease Control and Prevention: cdc.gov ??? [place] Heart Association: heart.org ??? National Heart, Lung, and Blood [place]: nhlbi.nih.gov This information is not intended to replace advice given to you by your health care provider. Make sure you discuss any questions you have with your health care provider. Document Revised: 11/22/2022 Document Reviewed: 11/15/2022 [employer] Patient Education ? 2023 [employer] [facility] 12-26-2023 Note Patient Education Orthopedics Hip Bursitis Hip bursitis is the swelling of one or more of the fluid-filled sacs (bursae) in the hip joint. The hip bursae absorb shocks and prevent bones from rubbing against each other. If a bursa becomes irritated, it can fill with extra fluid and become inflamed. Hip bursitis can cause mild to moderate pain, and symptoms often come and go over time. What are the causes? This condition results from increased friction between the hip bones and the tendons around the hip joint. This condition can happen if you: ? Overuse your hip muscles. ? Injure your hip. ? Have weak buttocks muscles. ? Have bone spurs. ? Have an infection. In some cases, the cause may not be known. What increases the risk? You are more likely to develop this condition if: ? You injured your hip previously or had hip surgery. ? You have a medical condition, such as arthritis, gout, diabetes, or thyroid disease. ? You have spine problems. ? You have one leg that is shorter than the other. ? You participate in athletic activities that include repetitive motion, like running. ? You participate in sports where there is a risk of injury or falling, such as football, martial arts, or skiing. What are the signs or symptoms? Symptoms may come and go, and they often include: ? Pain in the hip or groin area. Pain may get worse with movement. ? Tenderness and swelling of the hip. In rare cases, the bursa may become infected. If this happens, you may get a fever, as well as warmth and redness in the hip area. How is this diagnosed? This condition may be diagnosed based on: ? Your symptoms. ? Your medical history. ? A physical exam. ? Imaging tests, such as: ? X-rays to check your bones. ? MRI or ultrasound to check your tendons and muscles. ? Bone scan. How is this treated? This condition is treated by resting, icing, applying pressure (compression), and raising (elevating) the injured area. This is called RICE treatment. In some cases, RICE treatment may not be enough to make your symptoms go away. Treatment may also include: ? Using crutches, a cane, or a walker to decrease the strain on your hip. ? Taking medicine to help with swelling and pain. ? Getting a shot of cortisone medicine near the affected area to reduce swelling and pain. ? Taking antibiotic medicines if there is an infection. ? Draining fluid out of the bursa to help relieve swelling and pain. ? Having surgery to remove a damaged or infected bursa. This is rare. Long-term treatment may include: ? Physical therapy exercises for strength and flexibility. ? Identifying the cause of your bursitis to prevent future episodes. ? Lifestyle changes, such as weight loss, to reduce the strain on the hip. Follow these instructions at home: Managing pain, stiffness, and swelling ? If directed, put ice on the affected area. To do this: ? Put ice in a plastic bag. ? Place a towel between your skin and the bag. ? Leave the ice on for 20 minutes, 2?3 times a day. ? Remove the ice if your skin turns bright red. This is very important. If you cannot feel pain, heat, or cold, you have a greater risk of damage to the area. ? Elevate your hip as much as you can without feeling pain. To do this, put a pillow under your hips while you lie down. ? If directed, apply heat to the affected area as often as told by your health care provider. Use the heat source that your health care provider recommends, such as a moist heat pack or a heating pad. ? Place a towel between your skin and the heat source. ? Leave the heat on for 20?30 minutes. ? Remove the heat if your skin turns bright red. This is especially important if you are unable to feel pain, heat, or cold. You may have a greater risk of getting burned. Activity ? Do not use your hip to support your body weight until your health care provider says that you can. Use crutches, a cane, or a walker as told by your health care provider. ? If the affected leg is one that you use to drive, ask your health care provider if it is safe to drive. ? Rest and protect your hip as much as possible until your pain and swelling get better. ? Return to your normal activities as told by your health care provider. Ask your health care provider what activities are safe for you. ? Do exercises as told by your health care provider. General instructions ? Take btrc-xvy-hatenvm and prescription medicines only as told by your health care provider. ? Gently massage and stretch your injured area as often as is comfortable. ? Wear compression wraps only as told by your health care provider. ? If one of your legs is shorter than the other, get fitted for a shoe insert or orthotic. Your health care provider or physical therapist can tell you where to find these items and what size you need. ? Maintain a heal (more content not included)... [facility] 11-05-2023 Note Patient Education Nutrition BMI for Adults What is BMI? Body mass index (BMI) is a number that is calculated from a person's weight and height. BMI can help estimate how much of a person's weight is composed of fat. BMI does not measure body fat directly. Rather, it is an alternative to procedures that directly measure body fat, which can be difficult and expensive. BMI can help identify people who may be at higher risk for certain medical problems. What are BMI measurements used for? BMI is used as a screening tool to identify possible weight problems. It helps determine whether a person is obese, overweight, a healthy weight, or underweight. BMI is useful for: ? Identifying a weight problem that may be related to a medical condition or may increase the risk for medical problems. ? Promoting changes, such as changes in diet and exercise, to help reach a healthy weight. BMI screening can be repeated to see if these changes are working. How is BMI calculated? BMI involves measuring your weight in relation to your height. Both height and weight are measured, and the BMI is calculated from those numbers. This can be done either in [place] ([place] or metric measurements. Note that charts and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
[2024-05-09 09:01] LABS: Basophils Absolute Auto 0.1 10^3/uL (0.0-0.1); Basophils Percent Auto 0.6 % (0.2-2.0); Eosinophils Absolute Auto 0.2 10^3/uL (0.0-0.7); Eosinophils Percent Auto 1.9 % (0.9-7.0); Hematocrit 40.6 % (36.0-48.0); Hemoglobin 13.2 g/dL (12.0-16.0); Immature Granulocytes Abs Auto 0.03 10^3/uL (0.00-0.03); Immature Granulocytes Pct Auto 0.3 % (0.0-0.5); Lymphocytes Absolute Auto 2.5 10^3/uL (1.2-3.8); Lymphocytes Percent Auto 25.8 % (20.5-60.0); Mean Corpuscular HGB Conc 32.5 g/dL (29.9-35.2); Mean Corpuscular Hemoglobin 28.5 pg (26.7-34.0); Mean Corpuscular Volume 87.7 fL (81.0-99.0); Monocytes Absolute Auto 0.7 10^3/uL (0.3-0.8); Monocytes Percent Auto 7.2 % (1.7-12.0); Neutrophils Absolute Auto 6.1 10^3/uL (1.4-6.5); Neutrophils Percent Auto 64.2 % (43.0-75.0); Platelet Count 371 10^3/uL (150-450); Red Blood Count 4.63 10^6/uL (4.20-5.40); Red Cell Distribution Width 12.9 % (11.0-15.0); White Blood Count 9.5 10^3/uL (4.0-11.0)
[2024-05-09 09:37] LABS: Alanine Aminotransferase 43 U/L (14-59); Albumin Globulin Ratio 0.8; Albumin Level 3.5 g/dL (3.4-5.0); Alkaline Phosphatase 122 U/L (46-116); Anion Gap 12.1; Aspartate Amino Transferase 22 U/L (15-37); BUN Creatinine Ratio 11.5; Bilirubin Total 0.3 mg/dL (0.2-1.0); Calcium 8.9 mg/dL (8.5-10.1); Carbon Dioxide 26.4 mmol/L (21.0-32.0); Chloride 103 mmol/L (98-107); Cholesterol 219 mg/dL (<=200); Estimated Average Glucose 123 mg/dL; Estimated GFR (African America >60 (>=60 mL/min/1.73m^2); Estimated GFR (Non-African Ame >60 (>=60 mL/min/1.73m^2); Globulin 4.2 g/dL; Glucose 99 mg/dL (74-106); Glycohemoglobin A1C 5.9 % (4.5-6.2); Potassium 4.5 mmol/L (3.5-5.1); Sodium 137 mmol/L (136-145); Thyroid Stimulating Hormone 2.096 uIU/mL (0.358-3.740); Total Protein 7.7 g/dL (6.4-8.2)
== END 2024-05-09 08:40 | disposition home or self-care (01) ==
LOC: LAB 08:39
PROVIDERS: PCP Family Medicine; Visit Provider Physician Assistant
DX: Z00.00 Encounter for general adult medical examination without abnormal findings (principal)
CPT/HCPCS: 36415; 80053; 82465; 83036; 84443; 85025